=== PATIENT | female | born 1935 | race Caucasian/White ===

== ENCOUNTER → 2022-04-21 | Outpatient (CLI) | payer MEDICARE ==
[~2022-04-21] MED LIST: ALEVE220 M1 PO; ANTIVERT 25MG T25 MG PO; ASPIRIN CHEWABL81 MG PO; BYSTOLIC5 MG PO; ELIQUIS5 MG PO; KLONOPIN TAB 00.5 MG PO; LEVAQUIN500 MG PO
== END ==
LOC: KOH-I 10:23
DX: M25.551 Pain in right hip (principal); M25.552 Pain in left hip
CPT/HCPCS: 73522